=== PATIENT | male | born 1955 | race Caucasian/White ===

== ENCOUNTER 2023-11-28 09:20 | Inpatient (IN) | payer MEDICARE, OTHER ==
[~2023-11-28] VITALS: Ht 170.2 cm; Wt 84.1 kg
[~2023-11-28 09:20] MED LIST: tramadol
[2023-11-28 10:13] LABS: BASOPHILS % (AUTO) 0.2 % (0.0-2.0); EOSINOPHILS % (AUTO) 0.8 % (1.0-6.0); HEMATOCRIT 45.1 % (41-53); HEMOGLOBIN 14.5 g/dL (13.5-17.5); LYMPHOCYTES # (AUTO) 1.3 K/uL (1.0-4.8); LYMPHOCYTES % (AUTO) 10.6 % (22.0-44.0); MEAN CORPUSCULAR HEMOGLOBIN 30.9 pg (26.0-34.0); MEAN CORPUSCULAR HGB CONC 32.2 G/dL (31.0-37.0); MEAN CORPUSCULAR VOLUME 96 fL (80-100); MONOCYTES # (AUTO) 0.5 K/uL (0.1-1.0); MONOCYTES % (AUTO) 3.9 % (2.0-9.0); NEUTROPHILS # (AUTO) 10.2 K/uL (1.8-7.7); NEUTROPHILS % (AUTO) 84.5 % (40.0-70.0); PLATELET COUNT (AUTO) 228 K/uL (150-450); RED CELL DISTRIBUTION WIDTH 13.8 % (11.5-14.5); WHITE BLOOD COUNT (AUTO) 12.1 K/uL (4.5-11.0)
[2023-11-28 10:25] LABS: ANION GAP 10 mmol/L (8-16); CALCIUM, TOTAL 8.8 mg/dL (8.8-10.5); CARBON DIOXIDE 25 mmol/L (22-29); CHLORIDE 100 mmol/L (98-107); CREATININE 1.17 mg/dL (0.60-1.30); GLOMERULAR FILTR. RATE CALC > 60 mL/min (>60); GLUCOSE,RANDOM 264 mg/dL (70-110); POTASSIUM 3.9 mmol/L (3.5-5.1); SODIUM SERUM 135 mmol/L (136-145); UREA NITROGEN, BLOOD 15 mg/dL (7-18)
[2023-11-28 10:31] LABS: ALANINE AMINOTRANSFERASE 41 U/L (12-78); ALBUMIN 2.3 g/dL (3.4-5.0); ALKALINE PHOSPHATASE 108 U/L (46-116); ASPARTATE AMINOTRANSFERASE 27 U/L (15-37); BILIRUBIN,TOTAL 0.2 mg/dL (0.1-1.0); C-REACTIVE PROTEIN QUANT 12.07 mg/dL (0.00-0.30); TOTAL PROTEIN, SERUM 6.4 g/dL (6.4-8.2)
[2023-11-28] MEDS: LIDOCAINE 1% 10 ML VIAL SQ ONE (10:34)
[2023-11-28] MEDS: BACITRACIN 0.9 GM PACKET OINTMENT TP ONE (10:35)
[2023-11-28] MEDS: SODIUM CHLORIDE 0.9% 1,000 ML IV ONE ×2 (10:37→13:02)
[2023-11-28] MEDS: PIPERACILLIN/TAZO 3.375 GM/D5W 50 ML IV ONE (10:37)
[2023-11-28 10:42] LABS: ERYTHROCYTE SEDIMENTATION RATE 40 MM/HR (0-20)
[2023-11-28 10:49] LABS: LACTIC ACID 2.5 mmol/L (0.4-2.0)
[2023-11-28 11:00] LABS: ALCOHOL, BLOOD (SERUM) < 3 mg/dL (0-10)
[2023-11-28] MEDS: VANCOMYCIN 1.25 GM/WATER(PEG) 250 ML IV ONE (11:20)
[2023-11-28] MEDS: SODIUM CHLORIDE 0.9% 1,500 ML IV ONE (12:29)
[2023-11-28] MEDS: MORPHINE SULFATE 2 MG/ML SYRINGE IVP ONE (12:29)
[2023-11-28 13:00] LABS: PH,URINE DRUG SCREEN 6.5 (5.0-8.0)
[2023-11-28] MEDS ORDERED: MAGNESIUM HYDROXIDE SUSPENSION 30 ML UDCUP PO PRN (13:00)
[2023-11-28] MEDS ORDERED: DEXTROSE 50%-WATER 25 GM/50 ML SYRINGE IVP PRN (13:00)
[2023-11-28] MEDS ORDERED: ZOLPIDEM TARTRATE 5 MG TABLET PO PRN (13:00)
[2023-11-28] MEDS ORDERED: ONDANSETRON HCL 4 MG/2 ML VIAL IVP PRN (13:00)
[2023-11-28 13:07] LABS: ALCOHOL, URINE DRUG SCREEN NEGATIVE (NEGATIVE); BARBITURATE SCREEN, URINE NEGATIVE (NEGATIVE); BENZODIAZEPINES SCREEN,URINE NEGATIVE (NEGATIVE); CANNABINOID SCREEN,URINE NEGATIVE (NEGATIVE); COCAINE SCREEN,URINE NEGATIVE (NEGATIVE); METHADONE SCREEN, URINE NEGATIVE (NEGATIVE); OPIATE SCREEN,URINE NEGATIVE (NEGATIVE); PHENCYCLIDINE SCREEN,URINE NEGATIVE (NEGATIVE)
[2023-11-28 13:31] LABS: AMPHET/METH SCREEN,URINE POSITIVE (NEGATIVE)
[2023-11-28] MEDS: OxyCODONE HCL/ACETAMINOPHEN 5-325 MG TABLET PO PRN ×2 (14:40→19:47)
[2023-11-28] MEDS: PIPERACILLIN/TAZO 3.375 GM/D5W 50 ML IV SCH (16:46)
[2023-11-28] MEDS: ACETAMINOPHEN 325 MG TABLET PO PRN (17:10)
[2023-11-28] MEDS: VANCOMYCIN 1GM/WATER(PEG/NADA) 200 ML IV SCH (19:46)
[2023-11-28] MEDS: DOCUSATE SODIUM 100 MG CAPSULE PO SCH (20:07)
[2023-11-28 22:30] VITALS: BP 137/83; PULSE 66; RESP 20; TEMP 98; O2SAT 96
[2023-11-29 05:59] VITALS: BP 149/88; PULSE 78; RESP 20; TEMP 98.3; O2SAT 94
[2023-11-29 08:10] VITALS: BP 149/87; PULSE 69; RESP 18; TEMP 98.2; O2SAT 97
[2023-11-29 08:20] LABS: ANION GAP 7 mmol/L (8-16); CALCIUM, TOTAL 8.4 mg/dL (8.8-10.5); CARBON DIOXIDE 26 mmol/L (22-29); CHLORIDE 100 mmol/L (98-107); GLOMERULAR FILTR. RATE CALC > 60 mL/min (>60); GLUCOSE,RANDOM 102 mg/dL (70-110); POTASSIUM 4.6 mmol/L (3.5-5.1); SODIUM SERUM 133 mmol/L (136-145); UREA NITROGEN, BLOOD 14 mg/dL (7-18)
[2023-11-29] MEDS: FAMOTIDINE 20 MG TABLET PO SCH (08:59)
[2023-11-29 16:07] VITALS: BP 150/91; PULSE 74; RESP 20; TEMP 100.1; O2SAT 98
[2023-11-29] MEDS: INSULIN LISPRO 100 UNITS/ML SQ PRN (18:11)
[2023-11-29 19:36] VITALS: BP 126/63; PULSE 71; RESP 18; TEMP 97.6; O2SAT 96
[2023-11-29 21:05] LABS: GLUCOMETER DEV NAME(LOC) 6N.2B; GLUCOSE,POINT OF CARE 156 MG/DL (70-110)
[2023-11-30 03:56] LABS: GLUCOMETER DEV NAME(LOC) 4E.2; GLUCOSE,POINT OF CARE 123 MG/DL (70-110)
[2023-11-30 03:56] LABS: GLUCOMETER DEV NAME(LOC) 4E.2; GLUCOSE,POINT OF CARE 121 MG/DL (70-110)
[2023-11-30 03:56] LABS: GLUCOMETER DEV NAME(LOC) 4E.2; GLUCOSE,POINT OF CARE 110 MG/DL (70-110)
[2023-11-30 05:12] VITALS: BP 143/85; PULSE 72; RESP 18; TEMP 98.3; O2SAT 99
[2023-11-30 08:06] LABS: GLUCOMETER DEV NAME(LOC) 6N.2B; GLUCOSE,POINT OF CARE 107 MG/DL (70-110)
[2023-11-30 08:46] VITALS: BP 165/98; PULSE 74; RESP 18; TEMP 98.4; O2SAT 97
[2023-11-30 09:24] LABS: ANION GAP 10 mmol/L (8-16); CALCIUM, TOTAL 8.9 mg/dL (8.8-10.5); CARBON DIOXIDE 24 mmol/L (22-29); CHLORIDE 97 mmol/L (98-107); CREATININE 1.06 mg/dL (0.60-1.30); GLOMERULAR FILTR. RATE CALC > 60 mL/min (>60); GLUCOSE,RANDOM 104 mg/dL (70-110); POTASSIUM 4.2 mmol/L (3.5-5.1); SODIUM SERUM 131 mmol/L (136-145); UREA NITROGEN, BLOOD 22 mg/dL (7-18); VANCOMYCIN,RANDOM 10.6 mcg/mL (25.0-50.0)
[2023-11-30] MEDS ORDERED: VANCOMYCIN 1.25 GM/WATER(PEG) 250 ML IV SCH (20:00)
== END 2023-11-30 10:33 | disposition left against medical advice (07) | DRG 603 ==
LOC: EMS 09:20 → EDH 14:28 → 4E 21:59
PROVIDERS: ADMIT Internal Medicine; ATTEND Internal Medicine
PROC: 0X9J0ZZ Drainage of Right Hand, Open Approach (ICD-10-PCS; principal; 2023-11-28)
DX: L03.113 Cellulitis of right upper limb (principal); L02.511 Cutaneous abscess of right hand; R65.10 Systemic inflammatory response syndrome (SIRS) of non-infectious origin without acute organ dysfunction; L03.116 Cellulitis of left lower limb; M70.42 Prepatellar bursitis, left knee; G89.29 Other chronic pain; E11.65 Type 2 diabetes mellitus with hyperglycemia; F17.210 Nicotine dependence, cigarettes, uncomplicated; Z53.29 Procedure and treatment not carried out because of patient's decision for other reasons; Y93.89 Activity, other specified; Z82.49 Family history of ischemic heart disease and other diseases of the circulatory system; Z91.199 Patient's noncompliance with other medical treatment and regimen due to unspecified reason; Z71.6 Tobacco abuse counseling; M70.52 Other bursitis of knee, left knee; F15.10 Other stimulant abuse, uncomplicated
CPT/HCPCS: 80048; 80053; 80202; 80307; 82962; 83605; 84145; 85025; 85651; 86140; 87040; 99285; G0378; G0480; J2270; J2543; J3490; J7030